=== PATIENT | male | born 1980 | race African-American/Black ===

== ENCOUNTER 2017-03-23 18:25 | Inpatient (IN) | payer SELFPAY, MEDICAID ==
[2017-03-23 19:00] LABS: ADD MAN DIFF? NO
[2017-03-23 19:02] LABS: BASO # 0.1 x10^3/uL (0.0-0.2); BASO % 1 % (0-3); EOS # 0.2 x10^3/uL (0.0-0.7); EOS % 3 % (0-3); HEMATOCRIT 47.9 % (39.0-53.0); HEMOGLOBIN 15.7 g/dL (13.0-17.5); LYMPH # 1.8 x10^3/uL (1.0-4.8); LYMPH % 24 % (24-48); MEAN CORPUSCULAR HEMOGLOBIN 28 pg (25-35); MEAN CORPUSCULAR HGB CONC 33 g/dL (31-37); MEAN CORPUSCULAR VOLUME 85 fL (79-100); MONO # 0.8 x10^3/uL (0.0-1.1); MONO % 10 % (0-9); NEUT % 63 % (31-73); PLATELET COUNT 182 x10^3/uL (140-400); RED BLOOD COUNT 5.63 x10^6/uL (4.30-5.70); RED CELL DISTRIBUTION WIDTH 13.1 % (11.5-14.5); WHITE BLOOD COUNT 7.9 x10^3/uL (4.0-11.0)
[2017-03-23] MEDS: cloNIDine HCL 0.1 MG TABLET PO (19:16)
[2017-03-23 19:21] LABS: ANION GAP 10 (6-14); BLOOD UREA NITROGEN 11 mg/dL (8-26); BUN/CREATININE RATIO 11 (6-20); CALCIUM 8.8 mg/dL (8.5-10.1); CARBON DIOXIDE 26 mmol/L (21-32); CHLORIDE 105 mmol/L (98-107); GFR 103.5; GLUCOSE 126 mg/dL (70-99); POTASSIUM 3.4 mmol/L (3.5-5.1); SODIUM 141 mmol/L (136-145)
[2017-03-23 19:26] LABS: TROPONINI < 0.017 ng/mL (0.000-0.055)
[2017-03-23 19:27] LABS: ALBUMIN 3.6 g/dL (3.4-5.0); ALBUMIN/GLOBULIN RATIO 1.2 (1.0-1.7); ALK PHOS 131 U/L (46-116); ALT (SGPT) 30 U/L (16-63); AST (SGOT) 20 U/L (15-37); TOTAL BILIRUBIN 0.9 mg/dL (0.2-1.0); TOTAL PROTEIN 6.6 g/dL (6.4-8.2)
[2017-03-23 19:29] LABS: NT-PRO BNP 741 pg/mL (0-124)
[2017-03-23 20:01] LABS: INFLUENZA A PATIENT NEGATIVE (NEGATIVE); INFLUENZA B PATIENT NEGATIVE (NEGATIVE); OBC FLU VALID
[2017-03-23] MEDS ORDERED: NITROGLYCERIN SUBLINGUAL 0.4 MG BOTTLE OF 25. SL (21:15)
[2017-03-23] MEDS ORDERED: ACETAMINOPHEN 325 MG TABLET. PO (21:15)
[2017-03-23] MEDS ORDERED: ONDANSETRON PF 4 MG/2 ML VIAL. IV (21:15)
[2017-03-23] MEDS: FUROSEMIDE 40 MG/4 ML VIAL. IVP (22:46)
[2017-03-23] MEDS: fentaNYL PF VIAL 100 MCG/2 ML VIAL IV (22:47)
[2017-03-24 02:12] LABS: ADD MAN DIFF? NO
[2017-03-24 02:16] LABS: BASO # 0.1 x10^3/uL (0.0-0.2); BASO % 1 % (0-3); EOS # 0.2 x10^3/uL (0.0-0.7); EOS % 3 % (0-3); HEMATOCRIT 48.7 % (39.0-53.0); HEMOGLOBIN 15.8 g/dL (13.0-17.5); LYMPH # 2.1 x10^3/uL (1.0-4.8); LYMPH % 28 % (24-48); MEAN CORPUSCULAR HEMOGLOBIN 28 pg (25-35); MEAN CORPUSCULAR HGB CONC 33 g/dL (31-37); MEAN CORPUSCULAR VOLUME 85 fL (79-100); MONO # 0.8 x10^3/uL (0.0-1.1); MONO % 10 % (0-9); NEUT # 4.3 x10^3uL (1.8-7.7); NEUT % 58 % (31-73); PLATELET COUNT 180 x10^3/uL (140-400); RED BLOOD COUNT 5.72 x10^6/uL (4.30-5.70); RED CELL DISTRIBUTION WIDTH 13.3 % (11.5-14.5); WHITE BLOOD COUNT 7.5 x10^3/uL (4.0-11.0)
[2017-03-24 02:42] LABS: ANION GAP 8 (6-14); BLOOD UREA NITROGEN 12 mg/dL (8-26); CALCIUM 8.7 mg/dL (8.5-10.1); CARBON DIOXIDE 30 mmol/L (21-32); CHLORIDE 105 mmol/L (98-107); CREATININE 1.1 mg/dL (0.7-1.3); GFR 92.7; GLUCOSE 114 mg/dL (70-99); POTASSIUM 3.4 mmol/L (3.5-5.1); SODIUM 143 mmol/L (136-145)
[2017-03-24 02:51] LABS: TROPONINI 0.025 ng/mL (0.000-0.055)
[2017-03-24] MEDS: fentaNYL PF VIAL 100 MCG/2 ML VIAL IV ×3 (03:44→15:35)
[2017-03-24 08:21] LABS: TROPONINI 0.023 ng/mL (0.000-0.055)
[2017-03-24] MEDS: PNEUMOC CONJ VACC 23-VALENT 0.5 ML VIAL. VAX IM (08:54)
[2017-03-24] MEDS: POTASSIUM CHLORIDE 20 MEQ TABLET.ER. PO (08:55)
[2017-03-24] MEDS: CYCLOBENZAPRINE 10 MG TABLET. PO (08:55)
[2017-03-24] MEDS: PANTOPRAZOLE 40 MG TABLET.DR. PO (08:55)
[2017-03-24] MEDS: FLU VACC QS2017-18 (36MOS+)/PF 0.5 ML SYRINGE. VAX IM (08:58)
[2017-03-24] MEDS ORDERED: PNEUMOCOCCAL VAX SCREEN BY RX. MC (09:00)
[2017-03-24] MEDS ORDERED: INFLUENZA VAX SCREEN BY RX. MC (09:00)
[2017-03-24] MEDS ORDERED: LISINOPRIL 5 MG TABLET. PO (09:00)
[2017-03-24] MEDS ORDERED: DIGOXIN 250 MCG TABLET. PO (09:00)
[2017-03-24] MEDS ORDERED: FUROSEMIDE 40 MG TABLET. PO (11:00)
[2017-03-24] MEDS: SPIRONOLACTONE 25 MG TABLET PO ×2 (11:44→20:23)
[2017-03-24] MEDS: ASPIRIN CHEWABLE 81 MG TABLET. PO (11:44)
[2017-03-24] MEDS: LISINOPRIL 10 MG TABLET PO (11:44)
[2017-03-24] MEDS: CARVEDILOL 12.5 MG TABLET. PO ×2 (11:44→16:30)
[2017-03-24 11:48] LABS: DIG < 0.2 ng/mL (0.9-2.0)
[2017-03-24 11:51] LABS: D-DIMER 0.29 ug/mlFEU (0.00-0.50)
[2017-03-24] MEDS: FUROSEMIDE 40 MG TABLET. PO (16:30)
[2017-03-24] MEDS: HYDROcodone/APAP 5/325MG 1 TAB TABLET PO (20:22)
[2017-03-24] MEDS: NAPROXEN 500 MG TABLET PO (20:22)
[2017-03-24] MEDS: ATORVASTATIN CALCIUM 20 MG TABLET PO (20:23)
[2017-03-25] MEDS: hydrALAZINE 20 MG/ML VIAL. IVP (03:53)
[2017-03-25] MEDS: HYDROcodone/APAP 5/325MG 1 TAB TABLET PO ×2 (03:54→11:09)
[2017-03-25 06:58] LABS: ANION GAP 11 (6-14); BLOOD UREA NITROGEN 13 mg/dL (8-26); CALCIUM 8.7 mg/dL (8.5-10.1); CARBON DIOXIDE 25 mmol/L (21-32); CHLORIDE 105 mmol/L (98-107); GFR 103.5; GLUCOSE 94 mg/dL (70-99); MAGNESIUM 2.1 mg/dL (1.8-2.4); POTASSIUM 3.4 mmol/L (3.5-5.1); SODIUM 141 mmol/L (136-145)
[2017-03-25] MEDS: CYCLOBENZAPRINE 10 MG TABLET. PO (09:14)
[2017-03-25] MEDS: ASPIRIN CHEWABLE 81 MG TABLET. PO (09:14)
[2017-03-25] MEDS: SPIRONOLACTONE 25 MG TABLET PO (09:14)
[2017-03-25] MEDS: LISINOPRIL 10 MG TABLET PO (09:14)
[2017-03-25] MEDS: FUROSEMIDE 40 MG TABLET. PO ×2 (09:14→16:16)
[2017-03-25] MEDS: PANTOPRAZOLE 40 MG TABLET.DR. PO (09:14)
[2017-03-25] MEDS: CARVEDILOL 12.5 MG TABLET. PO (09:15)
[2017-03-25] MEDS: DIGOXIN 250 MCG TABLET. PO (09:15)
[2017-03-25] MEDS: POTASSIUM CHLORIDE 20 MEQ TABLET.ER. PO (14:12)
[2017-03-26] MEDS ORDERED: POTASSIUM CHLORIDE 20 MEQ TABLET.ER. PO (08:00)
== END 2017-03-25 16:23 | disposition home or self-care (01) | DRG 304 ==
LOC: ER 18:25 → 2 SOUTH 22:09
DX: I16.0 Hypertensive urgency (principal); I50.23 Acute on chronic systolic (congestive) heart failure; E66.01 Morbid (severe) obesity due to excess calories; Z68.41 Body mass index [BMI] 40.0-44.9, adult; I42.9 Cardiomyopathy, unspecified; I11.0 Hypertensive heart disease with heart failure; I25.10 Atherosclerotic heart disease of native coronary artery without angina pectoris; F17.210 Nicotine dependence, cigarettes, uncomplicated; E78.5 Hyperlipidemia, unspecified; E87.6 Hypokalemia; F12.90 Cannabis use, unspecified, uncomplicated; G47.33 Obstructive sleep apnea (adult) (pediatric); K21.9 Gastro-esophageal reflux disease without esophagitis; M19.90 Unspecified osteoarthritis, unspecified site; Z95.810 Presence of automatic (implantable) cardiac defibrillator; Z82.49 Family history of ischemic heart disease and other diseases of the circulatory system; Z91.19 Patient's noncompliance with other medical treatment and regimen; Z79.899 Other long term (current) drug therapy; Z79.82 Long term (current) use of aspirin; Z71.6 Tobacco abuse counseling; Z71.51 Drug abuse counseling and surveillance of drug abuser; Z91.041 Radiographic dye allergy status
CPT/HCPCS: 36415; 71045; 71250; 80048; 80053; 80162; 83735; 83880; 84484; 85025; 85379; 87804; 87804-59; 90686; 90732; 93005; 96374; 96375; 99285; 99285-25; 99406; J0360; J1940; J3010